=== PATIENT | male | born 1950 | race Caucasian/White ===

== ENCOUNTER 2019-11-26 20:12 | Observation (INO) | payer OTHER ==
[2019-11-26 20:21] VITALS: BMI 33.3
--- NOTE | 2019-11-26 20:27 | PDOC ---
Attending Attestation - Resident Resident Name: Roderick Shea - ED Attending Attestation I have performed the following: I have examined & evaluated the patient, The case was reviewed & discussed with the resident, I agree w/resident's findings & plan - HPI HPI: 11/26/19 23:07 see resident hpi - Physicial Exam PE: 11/26/19 23:07 see resident exam - Medical Decision Making 11/26/19 23:07 68-year-old male with approximately 15-minute episode of decreased responsiveness right facial droop witnessed by family now at baseline CT and MRI of the brain performed in the emergency department with no sign of acute infarct Call placed to neurology We will admit to medical service for further management Of note the son has been at the bedside providing history 11/26/19 23:08 Discharge - Discharge Information Problems reviewed: Yes Clinical Impression/Diagnosis: Transient ischemic attack Condition: Fair - Follow up/Referral - Patient Discharge Instructions - Post Discharge Activity
--- NOTE | 2019-11-26 21:24 | PDOC ---
History of Present Illness - General Chief Complaint: CVA/TIA Stated Complaint: POSS STROKE Time Seen by Provider: 11/26/19 20:25 - History of Present Illness Initial Comments: 11/26/19 22:00 68 yo male with pmh of dm, chf, htn, hld, dm and prior TIA presents to ED for AMS and right facial droop that started at 9 pm today. According to son patient had one episode of this in the past where pt was diagnosed with TIA at [facility]. Pt today according to pt last well known was at 7:15 pm where he took a nap and when he woke up was altered and had facial droop. This episode lasted for about twenty minutes when pt finally came back to normal mental status but still had mild facial droop. Pt currently denies headache, weakness, fevers, chills, chest pain, shortness of breath, abdominal pain, dysuria, or urinary frequency. PMH: DM, chf, htn, hld, dm, TIA. meds: finasteride. metformin, furosemide, omeprazole, losartin, lipitor, metoprolol, tamsulosin, baclofen, aspirin PSH: Right knee replacement (7 years ago) allergies: denies Social: denies smoking, drugs and alcohol Neurologist: Dr. Holcomb [phone] Past History - Medical History Allergies/Adverse Reactions: Allergies Allergy/AdvReac Type Severity Reaction Status Date / Time No Known Allergies Allergy Verified 11/26/19 20:21 - Psycho-Social/Smoking History Smoking History: Unknown if ever smoked Review of Systems - Review of Systems Comments:: 11/27/19 10:58 GENERAL/CONSTITUTIONAL: No fever or chills. No weakness. HEAD, EYES, EARS, NOSE AND THROAT: No change in vision. No ear pain or discharge. No sore throat. CARDIOVASCULAR: No chest pain or shortness of breath RESPIRATORY: No cough, wheezing, or hemoptysis. GASTROINTESTINAL: No nausea, vomiting, diarrhea or constipation. GENITOURINARY: No dysuria, frequency, or change in urination. MUSCULOSKELETAL: No joint or muscle swelling or pain. No neck or back pain. SKIN: No rash NEUROLOGIC: NO headeache. AMS and facial droop ALLERGIC/IMMUNOLOGIC: No hives or skin allergy. *Physical Exam - Vital Signs Last Vital Signs Temp Pulse Resp BP Pulse Ox 97.2 F L 88 18 106/71 99 11/26/19 20:12 11/26/19 20:12 11/26/19 20:12 11/26/19 20:12 11/26/19 20:12 - Physical Exam GENERAL: Awake, alert, and orientedx2, in no acute distress HEAD: No signs of trauma, normocephalic, atraumatic EYES: PERRLA, EOMI, sclera anicteric, conjunctiva clear ENT: Auricles normal inspection, hearing grossly normal, nares patent, oropharynx clear without exudates. Moist mucosa NECK: Normal ROM, supple, no lymphadenopathy, JVD, or masses LUNGS: No distress, speaks full sentences, clear to auscultation bilaterally HEART: Regular rate and rhythm, normal S1 and S2, no murmurs, rubs or gallops, peripheral pulses normal and equal bilaterally. ABDOMEN: Soft, nontender, normoactive bowel sounds. No guarding, no rebound. No masses EXTREMITIES : Normal inspection, Normal range of motion, no edema. No clubbing or cyanosis. NEUROLOGICAL: Cranial nerves II through XII intact with mild right sided facial droop. Normal speech, no focal sensorimotor deficits. Finger to nose intact. Heel to solares intact. 5/5 muscle strength in upper and lower ext bilaterally. SKIN: Warm, Dry, normal turgor, no rashes or lesions noted NIH Stroke Scale - Initial Evaluation Level of consciousness: Alert Ask patient the month and their age: Answers one correctly Ask patient to open & close eyes; make fist and let go: Obeys both correctly Best gaze (horizontal eye movement): Normal Visual field testing: No visual field loss Facial paresis (Show teeth/raise eyebrows/close eyes tight): Minor paralysis (flattened nasolabial fold, asymmetry on smiling) Motor Function: Left Arm: Normal Motor Function: Right Arm: Normal (extends arm 90 (or 45) degrees for 10 seconds without drift Motor Function: Left Leg: Normal (extends leg 30 degrees for 5 seconds without drift) Motor Function: Right Leg: Normal (extends leg 30 degrees for 5 seconds without drift) Limb Ataxia: No ataxia Sensory(Use pinprick test arms,legs,trunk,face/side to side): Normal Best language (Describe picture, name items, read sentences): No Aphasia Dysarthria (read several words): Normal articulation Extinction and Inattention: No abnormality - Total Score NIH Stroke Scale Score: 2 tPA Exclusion Checklist 0-3hr - Time Elapsed Date last known well: 11/26/19 Time last known well: 19:15 Elaspsed time: Day(s) and 15 Hour(s) and 39 Minutes - Thrombolytic Therapy Candidate Is the patient eligible for Thrombolytic Therapy?: No - Relative Exclusion Criteria 0-3h Care team unable to determine eligibility: Yes Stroke severity too mild (non-disabling): Yes - Ineligibility reason(s) Reasons No tPA given: See reason(s) noted above (stroke severity too mild ) tPA Exclusion checklist 3-4.5h - Time Elapsed Date last known well: 11/26/19 Time last known well: 19:15 Elaspsed time: Day(s) and 15 Hour(s) and 39 Minutes - Relative Exclusion Criteria 3-4.5 hr Stroke severity too mild (non-disabling): Yes Critical Care Time/MDM Note - Medical Decision Making Note: 11/26/19 23:13 68 yo male with pmh as above presents to ED for AMS and right facial droop. Pt received CT scan and MRI of brain which showed chronic stroke According to son pt back to baseline. AAOx2 and facial droop better. Pt HPI and ED course was discussed with Dr. Narayanan. Dr. Narayanan recommended admission for observation. Pt was signed out to PM team. Discharge - Discharge Information Problems reviewed: Yes Clinical Impression/Diagnosis: Transient ischemic attack Condition: Fair - Follow up/Referral - Patient Discharge Instructions - Post Discharge Activity
[2019-11-26 22:14] LABS: BASO % 1.5 % (0-2.0); EOS % 0.5 % (0-4.5); HEMATOCRIT 30.7 % (35.4-49); HEMOGLOBIN 10.4 GM/dL (11.7-16.9); LYMPH % 20.2 % (8-40); MCH 28.4 pg (25.7-33.7); MEAN CELL VOLUME 83.4 fl (80-96); MEAN PLT VOLUME 7.7 fl (7.5-11.1); MONO % 4.2 % (3.8-10.2); NEUT % 73.6 % (42.8-82.8); PLATELET COUNT 298 K/MM3 (134-434); RBC 3.68 M/mm3 (4.00-5.60); RDW 14.8 % (11.9-15.9); WHITE BLOOD COUNT 9.2 K/mm3 (4.0-10.0)
[2019-11-26 22:25] LABS: INR 0.99 (0.83-1.09); PROTHROMBIN TIME (PATIENT) 12.2 SEC (9.7-13.0)
[2019-11-26 22:28] LABS: ACTIVATED PTT 23.1 SECONDS (25.2-36.5)
[2019-11-26 22:37] LABS: ALBUMIN 2.4 g/dl (3.4-5.0); ALK PHOS 58 U/L (45-117); ANION GAP 7 MMOL/L (8-16); BILIRUBIN,TOTAL 0.1 mg/dL (0.2-1); BLOOD UREA NITROGEN 18.3 mg/dL (7-18); CALCIUM 8.5 mg/dL (8.5-10.1); CHLORIDE 97 mmol/L (98-107); CHOLESTEROL 87 mg/dL (50-200); CO2 30 mmol/L (21-32); CREATININE 0.9 mg/dL (0.55-1.3); GLUCOSE,RANDOM 140 mg/dL (74-106); HDL CHOLESTEROL 51 mg/dL (40-60); LDL CHOLESTEROL (ONLY SJRH) 25 mg/dL (5-100); POTASSIUM 4.4 mmol/L (3.5-5.1); SGOT/AST 13 U/L (15-37); SGPT/ALT 9 U/L (13-61); SODIUM 134 mmol/L (136-145); TOT PROT 7.2 g/dl (6.4-8.2); TRIGLYCERIDES 88 mg/dL (0-150)
[2019-11-26] MEDS ORDERED: ASPIRIN COATED 81 MG TABLET.EC PO ONE (23:05)
[2019-11-26] MEDS ORDERED: ASPIRIN COATED 81 MG TABLET.EC ONE (23:05)
--- NOTE | 2019-11-26 23:20 | PDOC ---
*Physical Exam - Vital Signs Last Vital Signs Temp Pulse Resp BP Pulse Ox 97.2 F L 88 18 106/71 99 11/26/19 20:12 11/26/19 20:12 11/26/19 20:12 11/26/19 20:12 11/26/19 20:12 ED Treatment Course - LABORATORY CBC & Chemistry Diagram: 11/26/19 21:45 11/26/19 21:45 - ADDITIONAL ORDERS Additional order review: Laboratory Results 11/26/19 11/26/19 11/26/19 21:48 21:45 21:45 PT with INR 12.20 INR 0.99 PTT (Actin FS) 23.1 L Sodium 134 L Potassium 4.4 Chloride 97 L Carbon Dioxide 30 Anion Gap 7 L BUN 18.3 H Creatinine 0.9 Est GFR (CKD-EPI)AfAm 99.94 Est GFR (CKD-EPI)NonAf 86.23 Random Glucose 140 H Calcium 8.5 Total Bilirubin 0.1 L AST 13 L ALT 9 L Alkaline Phosphatase 58 Creatine Kinase 36 Troponin I < 0.02 Total Protein 7.2 Albumin 2.4 L Triglycerides 88 Cholesterol 87 Total LDL Cholesterol 25 HDL Cholesterol 51 Antibody Screen Negative 11/26/19 21:45 RBC 3.68 L MCV 83.4 MCHC 34.0 RDW 14.8 MPV 7.7 Neutrophils % 73.6 Lymphocytes % 20.2 Monocytes % 4.2 Eosinophils % 0.5 Basophils % 1.5 Medical Decision Making - Medical Decision Making 11/26/19 23:13 68 yo male with pmh as above presents to ED for AMS and right facial droop. Pt received CT scan and MRI of brain which showed chronic stroke According to son pt back to baseline. AAOx2 and facial droop better. 11/26/19 23:17 Signed out from night team. Dr. Le consulted, suggested tele/obs admit. 11/27/19 01:58 Will have pt admitted for further work up. Discharge - Discharge Information Problems reviewed: Yes Clinical Impression/Diagnosis: Transient ischemic attack Condition: Fair - Admission Yes - Follow up/Referral - Patient Discharge Instructions - Post Discharge Activity
--- NOTE | 2019-11-27 01:57 | HP ---
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 The patient is a poor historian and was accompanied by his son and collateral information of the event was obtained by the ED team. The son of the patient endorsed the patients facial droop and mild confusion shortly after awaking from a nap for ~20 min in duration. During ED visit patient had returned to baseline with risidual L sided focal neurological deficits. Pt currently denies headache, weakness, fevers, chills, chest pain, shortness of breath, abdominal pain, dysuria, or urinary frequency. ER course was notable for: (1) return to baseline (2) (3) Recent Travel: Denied PAST MEDICAL HISTORY: as above PAST SURGICAL HISTORY: as above Social History: Smoking: Denied Alcohol: denied Drugs: denied Allergies No Known Allergies Allergy (Verified 11/26/19 20:21) HOME MEDICATIONS: REVIEW OF SYSTEMS See above PHYSICAL EXAMINATION Vital Signs - 24 hr 11/26/19 11/27/19 20:12 00:23 Temperature 97.2 F L Pulse Rate 88 Pulse Rate [ 92 H Apical] Respiratory 18 18 Rate Blood Pressure 106/71 Blood Pressure 100/61 [Left Arm] O2 Sat by Pulse 99 100 Oximetry (%) GENERAL: Awake, alert, and fully oriented, in no acute distress. HEAD: Normal with no signs of trauma. LUNGS: Breath sounds equal, clear to auscultation bilaterally. No wheezes, and no crackles. No accessory muscle use. HEART: Regular rate and rhythm, normal S1 and S2 without murmur, rub or gallop. ABDOMEN: Soft, nontender, not distended, normoactive bowel sounds, no guarding, no rebound, no masses. No hepatomegaly or splenomegaly. LOWER EXTREMITIES: 2+ pulses, warm, well-perfused. No calf tenderness. No periph eral edema. NEUROLOGICAL: Cranial nerves II-XII intact. Residual Left facial weakness w pursed lips (CN 7), Residual L upper and lower extremity weakness Laboratory Results - last 24 hr 11/26/19 11/26/19 11/26/19 21:45 21:45 21:45 WBC 9.2 RBC 3.68 L Hgb 10.4 L Hct 30.7 L MCV 83.4 MCH 28.4 MCHC 34.0 RDW 14.8 Plt Count 298 MPV 7.7 Absolute Neuts (auto) 6.7 Neutrophils % 73.6 Lymphocytes % 20.2 Monocytes % 4.2 Eosinophils % 0.5 Basophils % 1.5 Nucleated RBC % 0 PT with INR 12.20 INR 0.99 PTT (Actin FS) 23.1 L Sodium 134 L Potassium 4.4 Chloride 97 L Carbon Dioxide 30 Anion Gap 7 L BUN 18.3 H Creatinine 0.9 Est GFR (CKD-EPI)AfAm 99.94 Est GFR (CKD-EPI)NonAf 86.23 Random Glucose 140 H Calcium 8.5 Total Bilirubin 0.1 L AST 13 L ALT 9 L Alkaline Phosphatase 58 Creatine Kinase 36 Troponin I < 0.02 Total Protein 7.2 Albumin 2.4 L Triglycerides 88 Cholesterol 87 Total LDL Cholesterol 25 HDL Cholesterol 51 Blood Type Antibody Screen 11/26/19 21:48 WBC RBC Hgb Hct MCV MCH MCHC RDW Plt Count MPV Absolute Neuts (auto) Neutrophils % Lymphocytes % Monocytes % Eosinophils % Basophils % Nucleated RBC % PT with INR INR PTT (Actin FS) Sodium Potassium Chloride Carbon Dioxide Anion Gap BUN Creatinine Est GFR (CKD-EPI)AfAm Est GFR (CKD-EPI)NonAf Random Glucose Calcium Total Bilirubin AST ALT Alkaline Phosphatase Creatine Kinase Troponin I Total Protein Albumin Triglycerides Cholesterol Total LDL Cholesterol HDL Cholesterol Blood Type O POSITIVE Antibody Screen Negative ASSESSMENT/PLAN: 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 #TIA - patient has returned to baseline according to son - admit to tele - brain MRI/CT no acute intracranial pathology - Carotid dopplar - chronic infarct of the sorto radiata - asa 325 daily - neurochecks daily - Consult neuro - Dr. Le -fall/aspiration/seizure precautions #Anemia - iron panel - ferritin - stool guiac #HYPONATREMIA - IV NS - monitor lytes #DM -ISS -BGM #HTN -monitor BP #HLD #FEN -diabetic diet #DISPO -tele #DVT ppx - lovenox sq #Advanced directive -Full code Family Medical History Family History: As Documented Visit type - Medication Review Med list reviewed for High Risk Meds patients 65 and older: Yes - Emergency Visit Emergency Visit: Yes ED Registration Date: 11/27/19 Care time: The patient presented to the Emergency Department on the above date and was hospitalized for further evaluation of their emergent condition. - New Patient This patient is new to me today: Yes Date on this admission: 11/27/19 - Critical Care Critical Care patient: No ATTENDING PHYSICIAN STATEMENT I saw and evaluated the patient. I reviewed the resident's note and discussed the case with the resident. I agree with the resident's findings and plan as documented. SUBJECTIVE: OBJECTIVE: ASSESSMENT AND PLAN:
--- NOTE | 2019-11-27 02:40 | PN ---
Teaching Attending Note Name of Resident: Michele Ragsdale ATTENDING PHYSICIAN STATEMENT I saw and evaluated the patient. I reviewed the resident's note and discussed the case with the resident. I agree with the resident's findings and plan as documented. SUBJECTIVE: Patient is a 68 year old man with a PMH of NIDDM, CHF, HTN, HLD and TIA a 15 minute episode of decreased responsiveness and right facial droop that started at 9 pm today. According to son patient had one episode of this in the past and was diagnosed with TIA at [facility]. According to patient he was last known well at 7:15 pm when he took a nap and then woke up altered and had a right facial droop. This episode lasted for about 15 minutes then he came back to normal mental status but still had mild facial droop. Patient denies chest pain, shortness of breath, abdominal pain, headache, palpitations, dizziness, fever, chills, nausea, vomiting, diarrhea, constipation, dysuria, frequency, urgency, melena, hematochezia or hematuria. Patient improved while in the ER and according to son, his responsiveness is back to his baseline. Denies alcohol, tobacco or illicit drug use. No sick contacts or recent travels. Family history is unremarkable. OBJECTIVE: Alert Vital Signs Period Temp Pulse Resp BP Sys/Uribe Pulse Ox Last 24 Hr 97.2 F 88-92 18-18 100-106/61-71 99-100 HEENT: No Jaundice, eye redness or discharge, PERRLA, EOMI. Left facial droop; Normocephalic, atraumatic. External ears are normal and hearing is grossly intact. No nasal discharge. Neck: Supple, nontender. No palpable adenopathy or thyromegaly. No JVD Chest: Good effort. Clear to auscultation and percussion. Heart: Regular. No S3, rub or murmur Abdomen: Not distended, soft, nontender and no HSM. No rebound or guarding. Normal bowel sounds. Ext: Peripheral pulses intact. No leg edema. Skin: Warm and dry. No petechiae, rash or ecchymosis. Neuro: Alert. Oriented x3. CN 2-12 grossly intact. Sensation grossly intact in all four extremities; left side weakness. Psych: Appropriate mood and affect. Good insight. Abnormal Lab Results 10/11/26/19 11/26/19 21:45 21:45 21:45 RBC 3.68 L Hgb 10.4 L Hct 30.7 L PTT (Actin FS) 23.1 L Sodium 134 L Chloride 97 L Anion Gap 7 L BUN 18.3 H Random Glucose 140 H Total Bilirubin 0.1 L AST 13 L ALT 9 L Albumin 2.4 L Current Medications Generic Name Dose Route Start Last Admin Trade Name Columba PRN Reason Stop Dose Admin Aspirin 243 mg 11/27/19 23:04 11/26/19 23:26 Ecotrin - PO 11/27/19 23:05 243 mg NOW ONE Administration Aspirin 81 mg 11/27/19 10:00 Asa - PO DAILY SHU Enoxaparin Sodium 40 mg 11/27/19 10:00 Lovenox - SQ DAILY SHU ASSESSMENT AND PLAN: 1. Rule out CVA - NIHSS score was 2 in the ER. tPA not given. No evidence of acute intracranial pathology on noncontrast head CT scan, but a left frontal sorto radiata infarct was confirmed by MRI to be chronic. Needs repeat MRI in 24 hours. No acute abnormality on CXR. EKG shows NSR at 88/minute and QTc 488 with no significant acute ischemic ST-T wave changes. No old EKG available for comparison. Initial troponin is negative. Will avoid drugs that may prolong QTc. Got Aspirin 243 mg in the ER. Will admit to telemetry, get urinalysis, repeat troponin & EKG, get ECHO, TSH, carotid doppler, do speech and swallow evaluation, give high dose statin &Aspirin, do neurochecks and implement fall/aspiration/seizure precautions. Consult PT/Neurology. Hyponatremia likely partly due to hyperglycemia. Will limit free water intake and correct hyperglycemia. Viral testing for COVID-19 ordered and patient placed on airborne, droplet and contact isolation. Will continue comprehensive care for all of patients comorbid conditions. 2. DM Will implement sliding scale insulin regimen. Provide comprehensive diabetes care with patient teaching and counseling about the importance of adherence to prescribed diabetes regimen, euglycemia, eye care and foot care. 3. Anemia Cause unclear. Will do basic anemia work up including serial stool guaiacs, reticulocyte count and iron studies. Consult GI. 4. Obesity Counseled on the risks associated with obesity. Will provide patient all the necessary assistance, counseling and positive reinforcement to facilitate weight loss. Consult gasket winder. 5. Hypertension Will allow permissive hypertension for 24 to 48 hours. Will restart suitable outpatient antihypertensive drugs when clinically appropriate. Subsequently, will revise regimen to ensure [id number]-eyayy excellent BP control. Patient counseled on the injurious effects of uncontrolled hypertension. Nonpharmacologic measures to control hypertension like weight loss, salt restriction and exercise stressed. Importance of adherence to treatment regimen and attainment of normotension emphasized. 6. Hypoalbuminemia - Possibly due to combined effects of malnutrition and inflammation associated with comorbid conditions. Will ensure adequate dietary protein intake and also consult gasket winder. Urinalysis pending. 7. DVT prophylaxis - Lovenox 40 mg SQ q 24 hours. 8. Advance directives - Full code
[2019-11-27] MEDS ORDERED: ASPIRIN 81 MG CHEWABLE TABLETS ONE ×2 (05:09→10:49)
[2019-11-27 06:34] LABS: ALBUMIN 2.3 g/dl (3.4-5.0); BILIRUBIN,TOTAL 0.3 mg/dL (0.2-1); BLOOD UREA NITROGEN 14.4 mg/dL (7-18); CALCIUM 7.9 mg/dL (8.5-10.1); CREATININE 0.7 mg/dL (0.55-1.3); MAGNESIUM 1.9 mg/dL (1.8-2.4); PHOSPHOROUS 3.9 mg/dL (2.5-4.9); POTASSIUM 3.7 mmol/L (3.5-5.1); TOT PROT 6.7 g/dl (6.4-8.2)
[2019-11-27 07:28] LABS: BASO % 0.5 % (0-2.0); EOS % 0.4 % (0-4.5); HEMATOCRIT 28.8 % (35.4-49); HEMOGLOBIN 9.8 GM/dL (11.7-16.9); LYMPH % 25.3 % (8-40); MCH 27.8 pg (25.7-33.7); MEAN CELL VOLUME 81.7 fl (80-96); MEAN PLT VOLUME 7.3 fl (7.5-11.1); MONO % 4.3 % (3.8-10.2); NEUT % 69.5 % (42.8-82.8); PLATELET COUNT 317 K/MM3 (134-434); RBC 3.53 M/mm3 (4.00-5.60); RDW 14.8 % (11.9-15.9); WHITE BLOOD COUNT 6.4 K/mm3 (4.0-10.0)
[2019-11-27] MEDS ORDERED: ASPIRIN COATED 81 MG TABLET.EC PO SCH (10:00)
[2019-11-27] MEDS ORDERED: ENOXAPARIN NA (PORCINE) 40 MG/0.4 ML DISP.SYRIN SQ ONE (10:50)
[2019-11-27] MEDS: ENOXAPARIN NA (PORCINE) 40 MG/0.4 ML DISP.SYRIN SQ SCH (10:54)
[2019-11-27] MEDS: ASPIRIN 81 MG CHEWABLE TABLETS PO SCH (10:54)
[2019-11-27] MEDS ORDERED: OMEPRAZOLE PO SCH (12:00)
[2019-11-27] MEDS ORDERED: PATIENT'S OWN MEDICATION (NON-FORMULARY) (Linaclotide [Linzess] 290 MCG) PO SCH (12:00)
[2019-11-27] MEDS ORDERED: PATIENT'S OWN MEDICATION (NON-FORMULARY) (Lisinopril [Zestril] 2.5 MG) PO SCH (13:15)
--- NOTE | 2019-11-27 13:35 | EKG ---
Test Reason : Blood Pressure : / mmHG Vent. Rate : 088 BPM Atrial Rate : 088 BPM P-R Int : 136 ms QRS Dur : 076 ms QT Int : 404 ms P-R-T Axes : 036 014 025 degrees QTc Int : 488 ms NORMAL SINUS RHYTHM LOW VOLTAGE QRS CANNOT RULE OUT ANTERIOR INFARCT , AGE UNDETERMINED ABNORMAL ECG NO PREVIOUS ECGS AVAILABLE Confirmed by KIMBERLI MEYER MD ([id number]) on 11/27/2019 1:35:35 PM Referred By: Confirmed By:KIMBERLI MEYER MD
[2019-11-27] MEDS ORDERED: TAMSULOSIN HCL 0.4 MG CAP ONE (13:44)
[2019-11-27] MEDS ORDERED: LISINOPRIL 5 MG TABLET ONE (13:47)
[2019-11-27] MEDS ORDERED: metoPROLOL SUCCINATE 25 MG TAB.SR.24H (FP) ONE (13:47)
[2019-11-27] MEDS ORDERED: LOSARTAN POTASSIUM 50 MG TABLET ONE (13:47)
[2019-11-27] MEDS: LOSARTAN POTASSIUM 25 MG TABLET PO SCH (14:02)
[2019-11-27] MEDS: LISINOPRIL 5 MG TABLET PO SCH (14:02)
[2019-11-27] MEDS: TAMSULOSIN HCL 0.4 MG CAP PO SCH (14:02)
[2019-11-27] MEDS: metoPROLOL SUCCINATE 25 MG TAB.SR.24H (FP) PO SCH (14:02)
--- NOTE | 2019-11-27 14:07 | PN ---
Physical Exam: SUBJECTIVE: Patient seen and examined OBJECTIVE: Vital Signs Period Temp Pulse Resp BP Sys/Uribe Pulse Ox Last 24 Hr 97.2 F-97.8 F 80-92 18-19 95-106/61-71 99-100 GENERAL: The patient is awake, alert, and fully oriented, in no acute distress. HEAD: Normal with no signs of trauma. EYES: PERRL, extraocular movements intact, sclera anicteric, conjunctiva clear. No ptosis. ENT: Ears normal, nares patent, oropharynx clear without exudates, moist mucous membranes. NECK: Trachea midline, full range of motion, supple. LUNGS: Breath sounds equal, clear to auscultation bilaterally, no wheezes, no crackles, no accessory muscle use. HEART: Regular rate and rhythm, S1, S2 without murmur, rub or gallop. ABDOMEN: Soft, nontender, nondistended, normoactive bowel sounds, no guarding, no rebound, no hepatosplenomegaly, no masses. EXTREMITIES: 2+ pulses, warm, well-perfused, no edema. NEUROLOGICAL: Cranial nerves II through XII grossly intact. Normal speech, gait not observed. PSYCH: Normal mood, normal affect. SKIN: Warm, dry, normal turgor, no rashes or lesions noted Laboratory Results - last 24 hr 11/26/19 11/26/19 11/26/19 21:45 21:45 21:45 WBC 9.2 RBC 3.68 L Hgb 10.4 L Hct 30.7 L MCV 83.4 MCH 28.4 MCHC 34.0 RDW 14.8 Plt Count 298 MPV 7.7 Absolute Neuts (auto) 6.7 Neutrophils % 73.6 Lymphocytes % 20.2 Monocytes % 4.2 Eosinophils % 0.5 Basophils % 1.5 Nucleated RBC % 0 PT with INR 12.20 INR 0.99 PTT (Actin FS) 23.1 L Sodium 134 L Potassium 4.4 Chloride 97 L Carbon Dioxide 30 Anion Gap 7 L BUN 18.3 H Creatinine 0.9 Est GFR (CKD-EPI)AfAm 99.94 Est GFR (CKD-EPI)NonAf 86.23 POC Glucometer Random Glucose 140 H Calcium 8.5 Phosphorus Magnesium Iron TIBC Iron Saturation Unsaturated IBC Ferritin Total Bilirubin 0.1 L AST 13 L ALT 9 L Alkaline Phosphatase 58 Creatine Kinase 36 Troponin I < 0.02 Total Protein 7.2 Albumin 2.4 L Triglycerides 88 Cholesterol 87 Total LDL Cholesterol 25 HDL Cholesterol 51 TSH Blood Type Antibody Screen 11/26/19 11/27/19 11/27/19 21:48 05:30 06:22 WBC 6.4 RBC 3.53 L Hgb 9.8 L Hct 28.8 L MCV 81.7 MCH 27.8 MCHC 34.0 RDW 14.8 Plt Count 317 MPV 7.3 L Absolute Neuts (auto) 4.5 Neutrophils % 69.5 Lymphocytes % 25.3 D Monocytes % 4.3 Eosinophils % 0.4 Basophils % 0.5 Nucleated RBC % 0 PT with INR INR PTT (Actin FS) Sodium 135 L Potassium 3.7 Chloride 100 Carbon Dioxide 28 Anion Gap 7 L BUN 14.4 Creatinine 0.7 Est GFR (CKD-EPI)AfAm 110.82 Est GFR (CKD-EPI)NonAf 95.61 POC Glucometer Random Glucose 126 H Calcium 7.9 L Phosphorus 3.9 Magnesium 1.9 Iron 34 L TIBC 166 L Iron Saturation 20 Unsaturated IBC 132 L Ferritin 266.1 Total Bilirubin 0.3 AST 7 L ALT 9 L Alkaline Phosphatase 54 Creatine Kinase Troponin I Total Protein 6.7 Albumin 2.3 L Triglycerides Cholesterol Total LDL Cholesterol HDL Cholesterol TSH 0.81 Blood Type O POSITIVE Antibody Screen Negative 11/27/19 11:31 WBC RBC Hgb Hct MCV MCH MCHC RDW Plt Count MPV Absolute Neuts (auto) Neutrophils % Lymphocytes % Monocytes % Eosinophils % Basophils % Nucleated RBC % PT with INR INR PTT (Actin FS) Sodium Potassium Chloride Carbon Dioxide Anion Gap BUN Creatinine Est GFR (CKD-EPI)AfAm Est GFR (CKD-EPI)NonAf POC Glucometer 99 Random Glucose Calcium Phosphorus Magnesium Iron TIBC Iron Saturation Unsaturated IBC Ferritin Total Bilirubin AST ALT Alkaline Phosphatase Creatine Kinase Troponin I Total Protein Albumin Triglycerides Cholesterol Total LDL Cholesterol HDL Cholesterol TSH Blood Type Antibody Screen Active Medications Generic Name Dose Route Start Last Admin Trade Name Freq PRN Reason Stop Dose Admin Aspirin 81 mg 11/27/19 10:00 11/27/19 10:54 Asa - PO 81 mg DAILY [facility] Administration Atorvastatin Calcium 40 mg 11/27/19 22:00 Lipitor - PO HS SHU Clopidogrel Bisulfate 75 mg 11/27/19 14:00 Plavix - PO DAILY [facility] Enoxaparin Sodium 40 mg 11/27/19 10:00 11/27/19 10:54 Lovenox - SQ 40 mg DAILY [facility] Administration Finasteride 5 mg 11/27/19 14:00 Proscar - PO DAILY [facility] Lisinopril 2.5 mg 11/27/19 13:15 Prinivil PO DAILY [facility] Losartan Potassium 25 mg 11/27/19 14:00 Cozaar - PO DAILY [facility] Metoprolol Succinate 25 mg 11/27/19 13:15 Toprol Xl - PO DAILY [facility] Non-Formulary Medication 290 mcg 11/27/19 12:00 Linaclotide [Linzess] PO DAILY [facility] Non-Formulary Medication 50 mg 11/27/19 12:00 Omeprazole [Omeprazole] PO DAILY [facility] Solifenacin 10 mg 11/27/19 14:00 Vesicare - PO DAILY [facility] Tamsulosin HCl 0.4 mg 11/27/19 13:15 Flomax - PO DAILY@0830 [facility] ASSESSMENT/PLAN: 68 y/o M with PMS of TIA, DM, CHF, HTN, and HLD presenting with increased confusion and right sided facial droop. Admitted for a TIA. #TIA ATTENDING PHYSICIAN STATEMENT I saw and evaluated the patient. I reviewed the resident's note and discussed the case with the resident. I agree with the resident's findings and plan as documented. SUBJECTIVE: OBJECTIVE: ASSESSMENT AND PLAN:
[2019-11-27] MEDS ORDERED: CLOPIDOGREL BISULFATE 75 MG TABLET (FP) ONE (18:06)
[2019-11-27] MEDS: SOLIFENACIN SUCCINATE 5 MG TAB PO SCH (18:08)
[2019-11-27] MEDS: FINASTERIDE 5 MG TABLET (FP) PO SCH (18:08)
[2019-11-27] MEDS: CLOPIDOGREL BISULFATE 75 MG TABLET (FP) PO SCH (18:09)
--- NOTE | 2019-11-27 19:12 | CON.NEURO ---
Consult Consult Specialty:: Alexandro Referred by:: ER Reason for Consultation:: CVA - History of Present Illness History of Present Illness: 68 year sold man with PMH CAd O A TIA in the past, dm, chf, htn, hld, came in with facial droop I spoke to the ER that the patient still with diffciulty confsued patient had the CT and MRI Patient seen in [facility] ER No acute CVA on [facility] MRI - History Source History Provided By: Medical Record Limitations to Obtaining History: Clinical Condition - Smoking History Smoking history: Unknown if ever smoked Home Medications - Allergies Allergies/Adverse Reactions: Allergies Allergy/AdvReac Type Severity Reaction Status Date / Time No Known Allergies Allergy Verified 11/26/19 20:21 - Home Medications Home Medications: Ambulatory Orders Atorvastatin Ca [Lipitor] 40 mg PO HS 11/27/19 Finasteride [Proscar -] 5 mg PO DAILY 11/27/19 Glipizide [Glipizide ER] 5 mg PO BID 11/27/19 Linaclotide [Linzess] 290 mcg PO DAILY 11/27/19 Lisinopril [Zestril] 2.5 mg PO DAILY 11/27/19 Losartan Potassium 25 mg PO DAILY 11/27/19 Metoprolol Succinate 25 mg PO DAILY 11/27/19 Omeprazole 50 mg PO DAILY 11/27/19 Oxybutynin Chloride [Oxybutynin Chloride ER] 15 mg PO DAILY 11/27/19 Tamsulosin HCl 0.4 mg PO DAILY 11/27/19 metFORMIN HCL [Metformin HCl] 850 mg PO DAILY 11/27/19 Family Medical History Family History: Unable to Obtain Review of Systems - Review of Systems Neurological: reports: Headache, Incoordination, Numbness Physical Exam-Neuro Vital Signs: Vital Signs Temperature 98.9 F 11/27/19 17:12 Pulse Rate 80 11/27/19 10:40 Respiratory Rate 19 11/27/19 10:40 Blood Pressure 102/65 11/27/19 16:55 O2 Sat by Pulse Oximetry (%) 99 11/27/19 16:55 Constitutional: Yes: Well Nourished Neck: Yes: WNL Cardiovascular: Yes: WNL Labs: CBC, BMP 11/27/19 06:22 11/27/19 05:30 INR, PTT INR 0.99 (0.83-1.09) 11/26/19 21:45 - Neuro Exam Level Of Consciousness: Yes: Oriented to Person, Oriented to Place, Oriented to Time Eyes: Yes: PERRLA Dominant Hand: Right Cranial Nerves II-XII Intact: Yes Gag: Present DTR's: 0 Left Brachioradialis, 0 Right Brachioradialis, 0 Left Achilles, 0 Right Achilles, 1+ Left Bicep, 1+ Right Bicep Response to light touch: Abnormal Response to pain prick: Abnormal Response to temperature: Abnormal Response to vibration: Abnormal Motor Strength: 4/5: Left Arm, Right Arm, Left Leg, Right Leg Imaging - Results Cat Scan: Image Reviewed MRI: Image Reviewed Problem List - Problems (1) CVA (cerebral vascular accident) Code(s): I63.9 - CEREBRAL INFARCTION, UNSPECIFIED (2) Transient ischemic attack Code(s): G45.9 - TRANSIENT CEREBRAL ISCHEMIC ATTACK, UNSPECIFIED Assessment/Plan 1. fall precautions 2. ASpirin 3. PT 4. Hoocysteine level 5. HA1c and C peptide Thank you Norman Mc MD [id number]
[2019-11-27] MEDS ORDERED: ATORVASTATIN CA 40 MG TABLET (FP) PO SCH (22:00)
[2019-11-27] MEDS ORDERED: ATORVASTATIN CA 40 MG TABLET (FP) ONE (22:10)
[2019-11-27] MEDS ORDERED: ASPIRIN COATED 81 MG TABLET.EC PO ONE (23:04)
[2019-11-28 01:50] LABS: PH,URINE 5.5 (5.0-8.0); URINE APPEARANCE CLEAR; URINE BILIRUBIN NEGATIVE (NEGATIVE); URINE COLOR YELLOW; URINE GLUCOSE (UA) NEGATIVE (NEGATIVE); URINE KETONE NEGATIVE (NEGATIVE); URINE LEUK ESTERASE NEGATIVE (NEGATIVE); URINE NITRITE NEGATIVE (NEGATIVE); URINE PROTEIN TRACE (NEGATIVE); URINE UROBILINOGEN 0.2 mg/dL (0.2-1.0)
[2019-11-28] MEDS: TAMSULOSIN HCL 0.4 MG CAP PO SCH (08:17)
[2019-11-28 10:01] VITALS: TEMP 97.8
[2019-11-28] MEDS: ENOXAPARIN NA (PORCINE) 40 MG/0.4 ML DISP.SYRIN SQ SCH (10:01)
[2019-11-28] MEDS: ASPIRIN 81 MG CHEWABLE TABLETS PO SCH (10:01)
[2019-11-28] MEDS: FINASTERIDE 5 MG TABLET (FP) PO SCH (10:01)
[2019-11-28] MEDS: LOSARTAN POTASSIUM 25 MG TABLET PO SCH (10:01)
[2019-11-28] MEDS: LISINOPRIL 5 MG TABLET PO SCH (10:02)
[2019-11-28] MEDS: CLOPIDOGREL BISULFATE 75 MG TABLET (FP) PO SCH (10:03)
[2019-11-28] MEDS: metoPROLOL SUCCINATE 25 MG TAB.SR.24H (FP) PO SCH (10:03)
[2019-11-28] MEDS: SOLIFENACIN SUCCINATE 5 MG TAB PO SCH (10:03)
--- NOTE | 2019-11-28 11:28 | PN ---
Progress Note, Physician - Current Medication List Current Medications: Active Medications Aspirin (Asa -) 81 mg PO DAILY [facility] Last Admin: 11/28/19 10:01 Dose: 81 mg Documented by: Atorvastatin Calcium (Lipitor -) 40 mg PO HS [facility] Last Admin: 11/27/19 22:25 Dose: 40 mg Documented by: Clopidogrel Bisulfate (Plavix -) 75 mg PO DAILY [facility] Last Admin: 11/28/19 10:03 Dose: 75 mg Documented by: Enoxaparin Sodium (Lovenox -) 40 mg SQ DAILY [facility] Last Admin: 11/28/19 10:01 Dose: 40 mg Documented by: Finasteride (Proscar -) 5 mg PO DAILY [facility] Last Admin: 11/28/19 10:01 Dose: 5 mg Documented by: Lisinopril (Prinivil) 2.5 mg PO DAILY [facility] Last Admin: 11/28/19 10:02 Dose: 2.5 mg Documented by: Losartan Potassium (Cozaar -) 25 mg PO DAILY [facility] Last Admin: 11/28/19 10:01 Dose: 25 mg Documented by: Metoprolol Succinate (Toprol Xl -) 25 mg PO DAILY [facility] Last Admin: 11/28/19 10:03 Dose: 25 mg Documented by: Non-Formulary Medication (Linaclotide [Linzess]) 290 mcg PO DAILY [facility] Non-Formulary Medication (Omeprazole [Omeprazole]) 50 mg PO DAILY [facility] Solifenacin (Vesicare -) 10 mg PO DAILY [facility] Last Admin: 11/28/19 10:03 Dose: 10 mg Documented by: Tamsulosin HCl (Flomax -) 0.4 mg PO DAILY@0830 [facility] Last Admin: 11/28/19 08:17 Dose: 0.4 mg Documented by: - Objective Vital Signs: Vital Signs Temperature 97.8 F 11/28/19 09:59 Pulse Rate 81 11/28/19 09:59 Respiratory Rate 18 11/28/19 09:59 Blood Pressure 111/65 11/28/19 09:59 O2 Sat by Pulse Oximetry (%) 99 11/28/19 09:59 Labs: CBC, BMP 11/27/19 06:22 11/27/19 05:30 INR, PTT INR 0.99 (0.83-1.09) 11/26/19 21:45
--- NOTE | 2019-11-28 11:43 | DS ---
Physical Examination Vital Signs: Vital Signs Temperature 97.8 F 11/28/19 09:59 Pulse Rate 81 11/28/19 09:59 Respiratory Rate 18 11/28/19 09:59 Blood Pressure 111/65 11/28/19 09:59 O2 Sat by Pulse Oximetry (%) 99 11/28/19 09:59 Findings/Remarks: pt seen/ examined. chart reviewed awake/ comfortable. did well with pt All f/u noted Constitutional: Yes: No Distress, Calm Neck: Yes: Supple Cardiovascular: Yes: Regular Rate and Rhythm Respiratory: Yes: CTA Bilaterally Gastrointestinal: Yes: Soft Edema: No Neurological: Yes: Alert Labs: CBC, BMP 11/27/19 06:22 11/27/19 05:30 Discharge Summary Problems reviewed: Yes Reason For Visit: TRANSIENT ISCHEMIC ATTACK Current Active Problems CVA (cerebral vascular accident) (Acute) Transient ischemic attack (Acute) Hospital Course: admitted for TIA/ Concern of cva mri - no acute infarct. work up ok stable d/c home to family meds reviewed/ reconcilled d/w rn also as well as PT. Pt to follow with his pmd with in week Condition: Stable - Instructions Disposition: HOME - Home Medications Comprehensive Discharge Medication List: Ambulatory Orders Atorvastatin Ca [Lipitor] 40 mg PO HS 11/27/19 Finasteride [Proscar -] 5 mg PO DAILY 11/27/19 Glipizide [Glipizide ER] 5 mg PO BID 11/27/19 Linaclotide [Linzess] 290 mcg PO DAILY 11/27/19 Lisinopril [Zestril] 2.5 mg PO DAILY 11/27/19 Metoprolol Succinate 25 mg PO DAILY 11/27/19 Omeprazole 50 mg PO DAILY 11/27/19 Oxybutynin Chloride [Oxybutynin Chloride ER] 15 mg PO DAILY 11/27/19 Tamsulosin HCl 0.4 mg PO DAILY 11/27/19 metFORMIN HCL [Metformin HCl] 850 mg PO DAILY 11/27/19 Aspirin [ASA -] 81 mg PO DAILY tab.chew 11/28/19 Clopidogrel Bisulfate [Plavix -] 75 mg PO DAILY tablet 11/28/19 Solifenacin Succinate [Vesicare -] 10 mg PO DAILY tab 11/28/19
[2019-11-28 14:29] VITALS: BP 94/47; PULSE 79
== END 2019-11-28 15:15 | disposition home or self-care (01) ==
LOC: JER 20:12 → JERBED 11-27 02:00 → INTOOBSV 11-27 02:00 → J4S 11-28 04:28
PROVIDERS: ADMIT Internal Medicine; ATTEND Internal Medicine
PROC: 3E023GC Introduction of Other Therapeutic Substance into Muscle, Percutaneous Approach (ICD-10-PCS; principal; 2019-11-27)
DX: G45.9 Transient cerebral ischemic attack, unspecified (principal); I63.9 Cerebral infarction, unspecified; I11.0 Hypertensive heart disease with heart failure; I50.9 Heart failure, unspecified; E78.5 Hyperlipidemia, unspecified; E11.9 Type 2 diabetes mellitus without complications; D64.9 Anemia, unspecified; E88.09 Other disorders of plasma-protein metabolism, not elsewhere classified; Z29.9 Encounter for prophylactic measures, unspecified
CPT/HCPCS: 36415; 70450-TC; 70551-TC; 71045-TC-FY; 80053; 80061; 81003; 82550; 82728; 82962; 83540; 83550; 83721; 83735; 84100; 84443; 84484; 85025; 85045; 85610; 85730; 86850; 86900; 86901; 87086; 93005; 93010; 93880-TC; 96372; 97116-GP; 97161-GP; 99285-25; C9803; G0378; U0003

== ENCOUNTER 2020-02-03 14:05 | Inpatient (IN) | payer OTHER ==
[2020-02-03 14:54] VITALS: BMI 25.8
[2020-02-03] MEDS ORDERED: SODIUM CHLORIDE 0.9% 500 ML INFUS.BAG IV ONE (15:08)
[2020-02-03 15:50] LABS: BASO % 0.2 % (0-2.0); HEMATOCRIT 29.4 % (35.4-49); HEMOGLOBIN 9.6 GM/dL (11.7-16.9); LYMPH % 11.5 % (8-40); MCH 26.9 pg (25.7-33.7); MCHC 32.6 g/dl (32.0-35.9); MEAN CELL VOLUME 82.6 fl (80-96); MEAN PLT VOLUME 6.9 fl (7.5-11.1); MONO % 3.2 % (3.8-10.2); NEUT % 85.1 % (42.8-82.8); PLATELET COUNT 357 K/MM3 (134-434); RBC 3.56 M/mm3 (4.00-5.60); RDW 15.6 % (11.9-15.9); WHITE BLOOD COUNT 10.9 K/mm3 (4.0-10.0)
[2020-02-03 15:52] LABS: INR 1.2 (0.83-1.09); PROTHROMBIN TIME (PATIENT) 14.5 SEC (9.7-13.0)
[2020-02-03 15:55] LABS: ACTIVATED PTT 34.8 SECONDS (25.2-36.5)
[2020-02-03 16:05] LABS: CHLORIDE 97 mmol/L (98-107); SODIUM 133 mmol/L (136-145)
[2020-02-03 16:07] LABS: CALCIUM 7.3 mg/dL (8.5-10.1)
[2020-02-03 16:08] LABS: ALBUMIN 2.1 g/dl (3.4-5.0); ANION GAP 9 MMOL/L (8-16); BLOOD UREA NITROGEN 20.3 mg/dL (7-18); CO2 28 mmol/L (21-32); GLUCOSE,RANDOM 149 mg/dL (74-106)
[2020-02-03 16:11] LABS: SGOT/AST 12 U/L (15-37); SGPT/ALT 9 U/L (13-61)
[2020-02-03 16:13] LABS: ALK PHOS 54 U/L (45-117); BILIRUBIN,TOTAL 0.3 mg/dL (0.2-1); TOT PROT 6.6 g/dl (6.4-8.2)
[2020-02-03 16:14] LABS: N-TERMINAL BNP 830.8 pg/ml (5-125)
[2020-02-03] MEDS ORDERED: ATORVASTATIN CA 80 MG TABLET (FP) PO ONE (17:35)
[2020-02-03] MEDS ORDERED: ASPIRIN 325 MG ENTERIC COATED TABLET (FP) PO ONE (17:35)
[2020-02-03] MEDS ORDERED: ASPIRIN 325 MG ENTERIC COATED TABLET (FP) ONE (18:21)
[2020-02-03] MEDS ORDERED: ATORVASTATIN CA 80 MG TABLET (FP) ONE (18:22)
[2020-02-04 05:56] LABS: PH,URINE 6.5 (5.0-8.0); URINE APPEARANCE CLEAR; URINE BILIRUBIN NEGATIVE (NEGATIVE); URINE COLOR YELLOW; URINE GLUCOSE (UA) NEGATIVE (NEGATIVE); URINE KETONE NEGATIVE (NEGATIVE); URINE LEUK ESTERASE NEGATIVE (NEGATIVE); URINE NITRITE NEGATIVE (NEGATIVE); URINE PROTEIN TRACE (NEGATIVE); URINE UROBILINOGEN 0.2 mg/dL (0.2-1.0)
[2020-02-04 07:44] LABS: INR 1.25 (0.83-1.09)
[2020-02-04 07:46] LABS: ACTIVATED PTT 33.3 SECONDS (25.2-36.5)
[2020-02-04 07:50] LABS: BASO % 0.1 % (0-2.0); HEMATOCRIT 33.1 % (35.4-49); HEMOGLOBIN 10.9 GM/dL (11.7-16.9); MCH 26.9 pg (25.7-33.7); MEAN CELL VOLUME 81.5 fl (80-96); MEAN PLT VOLUME 6.6 fl (7.5-11.1); MONO % 3.1 % (3.8-10.2); NEUT % 90.8 % (42.8-82.8); PLATELET COUNT 325 K/MM3 (134-434); RBC 4.06 M/mm3 (4.00-5.60); RDW 15.1 % (11.9-15.9); WHITE BLOOD COUNT 11.8 K/mm3 (4.0-10.0)
[2020-02-04 08:01] LABS: BLOOD UREA NITROGEN 17.3 mg/dL (7-18)
[2020-02-04 08:05] LABS: CREATININE 0.7 mg/dL (0.55-1.3)
[2020-02-04] MEDS ORDERED: ASPIRIN COATED 81 MG TABLET.EC PO SCH (10:00)
[2020-02-04] MEDS: ASPIRIN 325 MG TABLET PO SCH (11:27)
[2020-02-04] MEDS ORDERED: ASPIRIN 325 MG ENTERIC COATED TABLET (FP) ONE (11:29)
[2020-02-04] MEDS ORDERED: ATORVASTATIN CA 80 MG TABLET (FP) ONE (22:10)
[2020-02-04] MEDS: ATORVASTATIN CA 80 MG TABLET (FP) PO SCH (22:18)
[2020-02-05] MEDS ORDERED: PNEUMOC 13-VAL CONJ-DIP CRM/PF 0.5 ML DISP.SYRIN IM ONE (10:00)
[2020-02-05] MEDS ORDERED: FLU VACCINE (FLULAVAL) PF 60 MCG/0.5 ML SYRINGE 2020-2021 IM ONE (10:00)
[2020-02-05] MEDS: ASPIRIN 325 MG TABLET PO SCH (10:35)
[2020-02-05] MEDS: FINASTERIDE 5 MG TABLET (FP) PO SCH (10:35)
[2020-02-05] MEDS: metoPROLOL SUCCINATE 25 MG TAB.SR.24H (FP) PO SCH (10:35)
[2020-02-05] MEDS: TAMSULOSIN HCL 0.4 MG CAP PO SCH (10:35)
[2020-02-05] MEDS: ATORVASTATIN CA 80 MG TABLET (FP) PO SCH (21:11)
[2020-02-06] MEDS: ASPIRIN 325 MG TABLET PO SCH (09:20)
[2020-02-06] MEDS: FINASTERIDE 5 MG TABLET (FP) PO SCH (09:20)
[2020-02-06] MEDS: metoPROLOL SUCCINATE 25 MG TAB.SR.24H (FP) PO SCH (09:21)
[2020-02-06] MEDS: TAMSULOSIN HCL 0.4 MG CAP PO SCH (09:21)
[2020-02-06] MEDS: ATORVASTATIN CA 80 MG TABLET (FP) PO SCH (21:51)
[2020-02-07] MEDS: ASPIRIN 325 MG TABLET PO SCH (09:08)
[2020-02-07] MEDS: FINASTERIDE 5 MG TABLET (FP) PO SCH (09:09)
[2020-02-07] MEDS: TAMSULOSIN HCL 0.4 MG CAP PO SCH (09:09)
[2020-02-07] MEDS: metoPROLOL SUCCINATE 25 MG TAB.SR.24H (FP) PO SCH (09:09)
[2020-02-07] MEDS: ACETAMINOPHEN 325 MG TABLET (FP) PO PRN (19:00)
[2020-02-07 19:30] LABS: BASO % 0.2 % (0-2.0); HEMATOCRIT 33.1 % (35.4-49); HEMOGLOBIN 10.7 GM/dL (11.7-16.9); LYMPH % 11.7 % (8-40); MCH 26.6 pg (25.7-33.7); MCHC 32.4 g/dl (32.0-35.9); MEAN CELL VOLUME 82.2 fl (80-96); MEAN PLT VOLUME 6.7 fl (7.5-11.1); MONO % 4.3 % (3.8-10.2); NEUT % 83.8 % (42.8-82.8); PLATELET COUNT 313 K/MM3 (134-434); RBC 4.02 M/mm3 (4.00-5.60); RDW 15.4 % (11.9-15.9); WHITE BLOOD COUNT 11.4 K/mm3 (4.0-10.0)
[2020-02-07 19:48] LABS: BLOOD UREA NITROGEN 13.3 mg/dL (7-18); CALCIUM 7.7 mg/dL (8.5-10.1)
[2020-02-07 19:52] LABS: CREATININE 0.8 mg/dL (0.55-1.3)
[2020-02-07 19:53] LABS: BILIRUBIN,TOTAL 0.2 mg/dL (0.2-1)
[2020-02-07] MEDS: ATORVASTATIN CA 80 MG TABLET (FP) PO SCH (22:13)
[2020-02-07 22:59] LABS: EPI CELLS 8 /uL (0-25.1); HYALINE CASTS 1 /uL (0-3.1); PH,URINE 5.5 (5.0-8.0); URINE APPEARANCE CLEAR; URINE BACTERIA 16 /uL (0-1359); URINE BILIRUBIN NEGATIVE (NEGATIVE); URINE COLOR YELLOW; URINE GLUCOSE (UA) NEGATIVE (NEGATIVE); URINE KETONE TRACE (NEGATIVE); URINE LEUK ESTERASE NEGATIVE (NEGATIVE); URINE NITRITE NEGATIVE (NEGATIVE); URINE PROTEIN 1+ (NEGATIVE); URINE RBC 42 /uL (0-23.9); URINE UROBILINOGEN 0.2 mg/dL (0.2-1.0); URINE WBC 6 /uL (0-25.8)
[2020-02-08] MEDS ORDERED: SODIUM CHLORIDE 0.45% 1,000 ML IV SCH (01:30)
[2020-02-08] MEDS: ACETAMINOPHEN 325 MG TABLET (FP) PO PRN (05:32)
[2020-02-08] MEDS ORDERED: SODIUM CHLORIDE 0.9% 500 ML INFUS.BAG IV ONE (06:45)
[2020-02-08] MEDS: TAMSULOSIN HCL 0.4 MG CAP PO SCH (08:12)
[2020-02-08] MEDS: metoPROLOL SUCCINATE 25 MG TAB.SR.24H (FP) PO SCH (09:18)
[2020-02-08] MEDS: FINASTERIDE 5 MG TABLET (FP) PO SCH (09:19)
[2020-02-08] MEDS: ASPIRIN 325 MG TABLET PO SCH (09:19)
[2020-02-08] MEDS: D5-1/2NS+20 MEQ KCL - 20 MEQ/1,000 ML INFUS.BAG IV SCH (13:16)
[2020-02-08] MEDS: ATORVASTATIN CA 80 MG TABLET (FP) PO SCH (21:24)
[2020-02-09 06:36] LABS: BASO % 0.1 % (0-2.0); EOS % 0.5 % (0-4.5); HEMATOCRIT 27.2 % (35.4-49); HEMOGLOBIN 9.2 GM/dL (11.7-16.9); LYMPH % 11.2 % (8-40); MCH 27.4 pg (25.7-33.7); MEAN CELL VOLUME 80.7 fl (80-96); MEAN PLT VOLUME 6.8 fl (7.5-11.1); NEUT % 85.2 % (42.8-82.8); PLATELET COUNT 305 K/MM3 (134-434); RBC 3.37 M/mm3 (4.00-5.60); RDW 15.3 % (11.9-15.9); WHITE BLOOD COUNT 10.9 K/mm3 (4.0-10.0)
[2020-02-09 06:57] LABS: ALBUMIN 1.6 g/dl (3.4-5.0); BLOOD UREA NITROGEN 14.6 mg/dL (7-18); CALCIUM 7.3 mg/dL (8.5-10.1)
[2020-02-09 07:00] LABS: BILIRUBIN,TOTAL 0.4 mg/dL (0.2-1); CREATININE 0.6 mg/dL (0.55-1.3)
[2020-02-09 07:01] LABS: TOT PROT 6.4 g/dl (6.4-8.2)
[2020-02-09] MEDS: metoPROLOL SUCCINATE 25 MG TAB.SR.24H (FP) PO SCH (09:11)
[2020-02-09] MEDS: FINASTERIDE 5 MG TABLET (FP) PO SCH (09:11)
[2020-02-09] MEDS: TAMSULOSIN HCL 0.4 MG CAP PO SCH (09:11)
[2020-02-09] MEDS: ASPIRIN 325 MG TABLET PO SCH (09:12)
[2020-02-09] MEDS: D5-1/2NS+20 MEQ KCL - 20 MEQ/1,000 ML INFUS.BAG IV SCH (09:14)
[2020-02-09] MEDS ORDERED: PNEUMOC 13-VAL CONJ-DIP CRM/PF 0.5 ML DISP.SYRIN IM ONE (11:00)
[2020-02-09] MEDS ORDERED: TAMSULOSIN HCL 0.4 MG CAP PO ONE (12:02)
[2020-02-09] MEDS: ATORVASTATIN CA 80 MG TABLET (FP) PO SCH (22:25)
[2020-02-10] MEDS: TAMSULOSIN HCL 0.4 MG CAP PO SCH (08:42)
[2020-02-10] MEDS: ASPIRIN 325 MG TABLET PO SCH (09:03)
[2020-02-10] MEDS: metoPROLOL SUCCINATE 25 MG TAB.SR.24H (FP) PO SCH (09:03)
[2020-02-10] MEDS: FINASTERIDE 5 MG TABLET (FP) PO SCH (09:03)
[2020-02-10] MEDS: ACETAMINOPHEN 325 MG TABLET (FP) PO PRN (17:24)
[2020-02-10] MEDS: ATORVASTATIN CA 80 MG TABLET (FP) PO SCH (21:42)
[2020-02-11] MEDS: ASPIRIN 325 MG TABLET PO SCH (09:28)
[2020-02-11] MEDS: metoPROLOL SUCCINATE 25 MG TAB.SR.24H (FP) PO SCH (09:28)
[2020-02-11] MEDS: TAMSULOSIN HCL 0.4 MG CAP PO SCH (09:28)
[2020-02-11] MEDS: FINASTERIDE 5 MG TABLET (FP) PO SCH (09:29)
[2020-02-11] MEDS: ASPIRIN 81 MG CHEWABLE TABLETS PO SCH (14:27)
[2020-02-11] MEDS: ATORVASTATIN CA 80 MG TABLET (FP) PO SCH (21:10)
[2020-02-12] MEDS: ACETAMINOPHEN 325 MG TABLET (FP) PO PRN (04:03)
[2020-02-12 06:51] LABS: BASO % 0.5 % (0-2.0); EOS % 0.3 % (0-4.5); HEMOGLOBIN 9.6 GM/dL (11.7-16.9); LYMPH % 21.4 % (8-40); MCH 27.1 pg (25.7-33.7); MCHC 33.2 g/dl (32.0-35.9); MEAN CELL VOLUME 81.8 fl (80-96); MONO % 4.3 % (3.8-10.2); NEUT % 73.5 % (42.8-82.8); PLATELET COUNT 444 K/MM3 (134-434); RBC 3.55 M/mm3 (4.00-5.60); RDW 15.5 % (11.9-15.9); WHITE BLOOD COUNT 8.2 K/mm3 (4.0-10.0)
[2020-02-12 07:20] LABS: CALCIUM 7.4 mg/dL (8.5-10.1)
[2020-02-12 07:21] LABS: BLOOD UREA NITROGEN 11.5 mg/dL (7-18)
[2020-02-12 07:24] LABS: ALBUMIN 1.6 g/dl (3.4-5.0); CREATININE 0.6 mg/dL (0.55-1.3)
[2020-02-12 07:27] LABS: BILIRUBIN,TOTAL 0.2 mg/dL (0.2-1); TOT PROT 6.3 g/dl (6.4-8.2)
[2020-02-12] MEDS: FINASTERIDE 5 MG TABLET (FP) PO SCH (09:10)
[2020-02-12] MEDS: ASPIRIN 81 MG CHEWABLE TABLETS PO SCH (09:11)
[2020-02-12] MEDS: TAMSULOSIN HCL 0.4 MG CAP PO SCH (09:11)
[2020-02-12] MEDS: metoPROLOL SUCCINATE 25 MG TAB.SR.24H (FP) PO SCH (09:14)
[2020-02-12 11:15] LABS: ANISOCYTOSIS 1+; MACROCYTOSIS 0; OVALOCYTE 1+; PLATELET ESTIMATE NORMAL
[2020-02-12] MEDS: ATORVASTATIN CA 80 MG TABLET (FP) PO SCH (21:27)
[2020-02-13] MEDS ORDERED: PT OWN MED DRAWER 7, Y5N ONE ×2 (09:24→18:25)
[2020-02-13] MEDS: metoPROLOL SUCCINATE 25 MG TAB.SR.24H (FP) PO SCH (09:29)
[2020-02-13] MEDS: TAMSULOSIN HCL 0.4 MG CAP PO SCH (09:29)
[2020-02-13] MEDS: ASPIRIN 81 MG CHEWABLE TABLETS PO SCH (09:29)
[2020-02-13] MEDS: FINASTERIDE 5 MG TABLET (FP) PO SCH (09:30)
[2020-02-13] MEDS ORDERED: AMPICILLIN NA/SULBACTAM NA 1.5 GM VIAL ONE ×2 (14:42→20:25)
[2020-02-13] MEDS ORDERED: SODIUM CHLORIDE 100 ML IVPB ONE ×2 (14:42→20:25)
[2020-02-13] MEDS: AMPICILLIN NA/SULBACTAM NA 1.5 GM in SODIUM CHLORIDE 100 ML IVPB SCH ×2 (15:13→21:20)
[2020-02-13] MEDS: ATORVASTATIN CA 80 MG TABLET (FP) PO SCH (21:20)
[2020-02-14] MEDS ORDERED: AMPICILLIN NA/SULBACTAM NA 1.5 GM VIAL ONE ×4 (02:25→20:25)
[2020-02-14] MEDS ORDERED: SODIUM CHLORIDE 100 ML IVPB ONE ×4 (02:25→20:25)
[2020-02-14] MEDS: AMPICILLIN NA/SULBACTAM NA 1.5 GM in SODIUM CHLORIDE 100 ML IVPB SCH ×4 (02:47→20:28)
[2020-02-14] MEDS: ACETAMINOPHEN 325 MG TABLET (FP) PO PRN (05:39)
[2020-02-14] MEDS: TAMSULOSIN HCL 0.4 MG CAP PO SCH (09:00)
[2020-02-14] MEDS ORDERED: PT OWN MED DRAWER 7, Y5N ONE (10:00)
[2020-02-14] MEDS: ASPIRIN 81 MG CHEWABLE TABLETS PO SCH (10:05)
[2020-02-14] MEDS: FINASTERIDE 5 MG TABLET (FP) PO SCH (10:05)
[2020-02-14] MEDS: metoPROLOL SUCCINATE 25 MG TAB.SR.24H (FP) PO SCH (10:07)
[2020-02-14] MEDS: DEXTROSE 5%-NORMAL SALINE 1,000 ML IV SCH (20:28)
[2020-02-14] MEDS: ATORVASTATIN CA 80 MG TABLET (FP) PO SCH (22:03)
[2020-02-14 22:09] LABS: BASO % 0.3 % (0-2.0); EOS % 0.5 % (0-4.5); HEMATOCRIT 25.5 % (35.4-49); HEMOGLOBIN 8.4 GM/dL (11.7-16.9); LYMPH % 11.6 % (8-40); MCH 26.9 pg (25.7-33.7); MCHC 32.9 g/dl (32.0-35.9); MEAN CELL VOLUME 81.6 fl (80-96); MEAN PLT VOLUME 6.9 fl (7.5-11.1); MONO % 2.7 % (3.8-10.2); NEUT % 84.9 % (42.8-82.8); PLATELET COUNT 398 K/MM3 (134-434); RBC 3.12 M/mm3 (4.00-5.60); RDW 15.6 % (11.9-15.9); WHITE BLOOD COUNT 14.7 K/mm3 (4.0-10.0)
[2020-02-14 22:16] LABS: ALBUMIN 1.5 g/dl (3.4-5.0); CALCIUM 7.3 mg/dL (8.5-10.1)
[2020-02-14 22:17] LABS: BLOOD UREA NITROGEN 20.7 mg/dL (7-18)
[2020-02-14 22:20] LABS: CREATININE 0.7 mg/dL (0.55-1.3)
[2020-02-14 22:21] LABS: BILIRUBIN,TOTAL 0.2 mg/dL (0.2-1); TOT PROT 5.9 g/dl (6.4-8.2)
[2020-02-15] MEDS ORDERED: SODIUM CHLORIDE 100 ML IVPB ONE ×4 (02:38→19:59)
[2020-02-15] MEDS ORDERED: AMPICILLIN NA/SULBACTAM NA 1.5 GM VIAL ONE ×4 (02:38→19:59)
[2020-02-15] MEDS: AMPICILLIN NA/SULBACTAM NA 1.5 GM in SODIUM CHLORIDE 100 ML IVPB SCH ×4 (02:40→20:20)
[2020-02-15 07:53] LABS: BASO % 0.2 % (0-2.0); EOS % 0.8 % (0-4.5); HEMOGLOBIN 8.3 GM/dL (11.7-16.9); LYMPH % 14.3 % (8-40); MCH 27.3 pg (25.7-33.7); MCHC 33.4 g/dl (32.0-35.9); MEAN CELL VOLUME 81.7 fl (80-96); MEAN PLT VOLUME 7.1 fl (7.5-11.1); MONO % 3.4 % (3.8-10.2); NEUT % 81.3 % (42.8-82.8); PLATELET COUNT 369 K/MM3 (134-434); RBC 3.06 M/mm3 (4.00-5.60); RDW 15.7 % (11.9-15.9); WHITE BLOOD COUNT 9.5 K/mm3 (4.0-10.0)
[2020-02-15 08:12] LABS: ALBUMIN 1.5 g/dl (3.4-5.0); CALCIUM 7.3 mg/dL (8.5-10.1)
[2020-02-15 08:13] LABS: BLOOD UREA NITROGEN 15.4 mg/dL (7-18)
[2020-02-15 08:16] LABS: CREATININE 0.5 mg/dL (0.55-1.3)
[2020-02-15 08:17] LABS: BILIRUBIN,TOTAL 0.2 mg/dL (0.2-1); TOT PROT 5.8 g/dl (6.4-8.2)
[2020-02-15] MEDS: FINASTERIDE 5 MG TABLET (FP) PO SCH (09:14)
[2020-02-15] MEDS: metoPROLOL SUCCINATE 25 MG TAB.SR.24H (FP) PO SCH (09:14)
[2020-02-15] MEDS: ASPIRIN 81 MG CHEWABLE TABLETS PO SCH (09:14)
[2020-02-15] MEDS: TAMSULOSIN HCL 0.4 MG CAP PO SCH (09:14)
[2020-02-15] MEDS: SILVER SULFADIAZINE 1% TOP CREAM 50 GM JAR TP SCH (16:01)
[2020-02-15] MEDS: DEXTROSE 5%-NORMAL SALINE 1,000 ML IV SCH (20:19)
[2020-02-15] MEDS: ATORVASTATIN CA 80 MG TABLET (FP) PO SCH (21:08)
[2020-02-16] MEDS ORDERED: AMPICILLIN NA/SULBACTAM NA 1.5 GM VIAL ONE ×4 (02:11→20:38)
[2020-02-16] MEDS ORDERED: SODIUM CHLORIDE 100 ML IVPB ONE ×4 (02:12→20:39)
[2020-02-16] MEDS: AMPICILLIN NA/SULBACTAM NA 1.5 GM in SODIUM CHLORIDE 100 ML IVPB SCH ×4 (02:31→20:52)
[2020-02-16] MEDS: MULTIVITAMINS (DAILY MVI) TABLET (FP) PO SCH (09:11)
[2020-02-16] MEDS: SILVER SULFADIAZINE 1% TOP CREAM 50 GM JAR TP SCH (09:11)
[2020-02-16] MEDS: TAMSULOSIN HCL 0.4 MG CAP PO SCH (09:11)
[2020-02-16] MEDS: FINASTERIDE 5 MG TABLET (FP) PO SCH (09:11)
[2020-02-16] MEDS: ASPIRIN 81 MG CHEWABLE TABLETS PO SCH (09:11)
[2020-02-16] MEDS: AMINO ACIDS/PROTEIN HYDROLYS 30 ML LIQUID.PKT PO SCH (09:11)
[2020-02-16] MEDS: metoPROLOL SUCCINATE 25 MG TAB.SR.24H (FP) PO SCH (09:12)
[2020-02-16] MEDS: DEXTROSE 5%-NORMAL SALINE 1,000 ML IV SCH (17:30)
[2020-02-16] MEDS: ATORVASTATIN CA 80 MG TABLET (FP) PO SCH (21:56)
[2020-02-17] MEDS ORDERED: AMPICILLIN NA/SULBACTAM NA 1.5 GM VIAL ONE ×3 (02:03→21:22)
[2020-02-17] MEDS ORDERED: SODIUM CHLORIDE 100 ML IVPB ONE ×3 (02:03→21:22)
[2020-02-17] MEDS: AMPICILLIN NA/SULBACTAM NA 1.5 GM in SODIUM CHLORIDE 100 ML IVPB SCH ×4 (02:07→21:25)
[2020-02-17] MEDS ORDERED: PT OWN MED DRAWER 7, Y5N ONE (09:05)
[2020-02-17] MEDS: MULTIVITAMINS (DAILY MVI) TABLET (FP) PO SCH (09:15)
[2020-02-17] MEDS: ASPIRIN 81 MG CHEWABLE TABLETS PO SCH (09:15)
[2020-02-17] MEDS: TAMSULOSIN HCL 0.4 MG CAP PO SCH (09:15)
[2020-02-17] MEDS: AMINO ACIDS/PROTEIN HYDROLYS 30 ML LIQUID.PKT PO SCH (09:15)
[2020-02-17] MEDS: metoPROLOL SUCCINATE 25 MG TAB.SR.24H (FP) PO SCH (09:15)
[2020-02-17] MEDS: FINASTERIDE 5 MG TABLET (FP) PO SCH (09:15)
[2020-02-17] MEDS: DEXTROSE 5%-NORMAL SALINE 1,000 ML IV SCH (09:23)
[2020-02-17] MEDS: SILVER SULFADIAZINE 1% TOP CREAM 50 GM JAR TP SCH (09:24)
[2020-02-17] MEDS: ATORVASTATIN CA 80 MG TABLET (FP) PO SCH (21:25)
[2020-02-18] MEDS ORDERED: SODIUM CHLORIDE 100 ML IVPB ONE ×4 (02:58→22:22)
[2020-02-18] MEDS ORDERED: AMPICILLIN NA/SULBACTAM NA 1.5 GM VIAL ONE ×4 (02:58→22:22)
[2020-02-18] MEDS: AMPICILLIN NA/SULBACTAM NA 1.5 GM in SODIUM CHLORIDE 100 ML IVPB SCH ×4 (03:02→22:43)
[2020-02-18] MEDS: AMINO ACIDS/PROTEIN HYDROLYS 30 ML LIQUID.PKT PO SCH (10:33)
[2020-02-18] MEDS: ASPIRIN 81 MG CHEWABLE TABLETS PO SCH (10:33)
[2020-02-18] MEDS: metoPROLOL SUCCINATE 25 MG TAB.SR.24H (FP) PO SCH (10:34)
[2020-02-18] MEDS: FINASTERIDE 5 MG TABLET (FP) PO SCH (10:34)
[2020-02-18] MEDS: TAMSULOSIN HCL 0.4 MG CAP PO SCH (10:34)
[2020-02-18] MEDS: MULTIVITAMINS (DAILY MVI) TABLET (FP) PO SCH (10:34)
[2020-02-18] MEDS ORDERED: PT OWN MED DRAWER 7, Y5N ONE (10:39)
[2020-02-18] MEDS: SILVER SULFADIAZINE 1% TOP CREAM 50 GM JAR TP SCH (10:41)
[2020-02-18] MEDS: ATORVASTATIN CA 80 MG TABLET (FP) PO SCH (22:43)
[2020-02-19] MEDS ORDERED: AMPICILLIN NA/SULBACTAM NA 1.5 GM VIAL ONE (03:37)
[2020-02-19] MEDS ORDERED: SODIUM CHLORIDE 100 ML IVPB ONE (03:37)
[2020-02-19] MEDS: AMPICILLIN NA/SULBACTAM NA 1.5 GM in SODIUM CHLORIDE 100 ML IVPB SCH ×2 (03:51→09:55)
[2020-02-19] MEDS ORDERED: PT OWN MED DRAWER 7, Y5N ONE (08:53)
[2020-02-19] MEDS: AMINO ACIDS/PROTEIN HYDROLYS 30 ML LIQUID.PKT PO SCH (08:56)
[2020-02-19] MEDS: TAMSULOSIN HCL 0.4 MG CAP PO SCH (08:56)
[2020-02-19] MEDS: ASPIRIN 81 MG CHEWABLE TABLETS PO SCH (09:55)
[2020-02-19] MEDS: metoPROLOL SUCCINATE 25 MG TAB.SR.24H (FP) PO SCH (09:56)
[2020-02-19] MEDS: SILVER SULFADIAZINE 1% TOP CREAM 50 GM JAR TP SCH (09:56)
[2020-02-19] MEDS: FINASTERIDE 5 MG TABLET (FP) PO SCH (09:56)
[2020-02-19] MEDS: MULTIVITAMINS (DAILY MVI) TABLET (FP) PO SCH (09:56)
[2020-02-19 15:34] VITALS: BP 105/77; PULSE 74; TEMP 98
== END 2020-02-19 15:37 | DRG 57 ==
LOC: JER 14:05 → JERBED 17:36 → J4S 02-04 22:50
PROVIDERS: ATTEND Internal Medicine
DX: I69.90 Unspecified sequelae of unspecified cerebrovascular disease (principal); G45.9 Transient cerebral ischemic attack, unspecified; E87.1 Hypo-osmolality and hyponatremia; E78.5 Hyperlipidemia, unspecified; M10.9 Gout, unspecified; E11.9 Type 2 diabetes mellitus without complications; R29.810 Facial weakness; R33.9 Retention of urine, unspecified; D64.9 Anemia, unspecified; I25.119 Atherosclerotic heart disease of native coronary artery with unspecified angina pectoris; R26.81 Unsteadiness on feet; I11.0 Hypertensive heart disease with heart failure; I50.9 Heart failure, unspecified
CPT/HCPCS: 36415; 70450-TC; 70551-TC; 71045-TC-FY; 80048; 80053; 80061; 81003; 82550; 82962; 83090; 83605; 83721; 83880; 84484; 85025; 85610; 85730; 86850; 86900; 86901; 87040; 87086; 87186; 90670; 93005; 93010; 93306-TC; 93880-TC; 93970-TC; 97116-GP; 97161-GP; 99285-25; C9803; U0003

== ENCOUNTER 2020-04-22 10:09 | Inpatient (IN) | payer OTHER ==
[2020-04-22 10:27] VITALS: BMI 24.3
[2020-04-22 10:52] LABS: BASO % 0.3 % (0-2.0); EOS % 0.4 % (0-4.5); HEMATOCRIT 27.6 % (35.4-49); HEMOGLOBIN 9.1 GM/dL (11.7-16.9); LYMPH % 27.9 % (8-40); MCH 27.2 pg (25.7-33.7); MCHC 33.1 g/dl (32.0-35.9); MEAN CELL VOLUME 82.1 fl (80-96); MEAN PLT VOLUME 7.3 fl (7.5-11.1); MONO % 5.8 % (3.8-10.2); NEUT % 65.6 % (42.8-82.8); PLATELET COUNT 371 K/MM3 (134-434); RBC 3.36 M/mm3 (4.00-5.60); RDW 16.3 % (11.9-15.9); WHITE BLOOD COUNT 6.3 K/mm3 (4.0-10.0)
[2020-04-22 11:00] LABS: INR 1.12 (0.83-1.09); PROTHROMBIN TIME (PATIENT) 13.7 SEC (9.7-13.0)
[2020-04-22] MEDS ORDERED: SODIUM CHLORIDE 1,000 ML IV STA ×2 (11:14→19:00)
[2020-04-22 12:11] LABS: ANION GAP 5 MMOL/L (8-16); CHLORIDE 100 mmol/L (98-107); CO2 31 mmol/L (21-32); GLUCOSE,RANDOM 120 mg/dL (74-106); POTASSIUM 3.6 mmol/L (3.5-5.1); SODIUM 136 mmol/L (136-145)
[2020-04-22 12:13] LABS: ALBUMIN 2.3 g/dl (3.4-5.0); ALK PHOS 76 U/L (45-117); BILIRUBIN,TOTAL 0.2 mg/dL (0.2-1); BLOOD UREA NITROGEN 19.6 mg/dL (7-18); CALCIUM 8.3 mg/dL (8.5-10.1); CREATININE 0.8 mg/dL (0.55-1.3); SGOT/AST 7 U/L (15-37); SGPT/ALT 11 U/L (13-61); TOT PROT 6.6 g/dl (6.4-8.2)
[2020-04-22 12:44] LABS: EPI CELLS 1 /uL (0-25.1); HYALINE CASTS 2 /uL (0-3.1); PH,URINE 5.5 (5.0-8.0); URINE APPEARANCE CLOUDY; URINE BACTERIA >9,000 /uL (0-1359); URINE BILIRUBIN NEGATIVE (NEGATIVE); URINE COLOR YELLOW; URINE GLUCOSE (UA) NEGATIVE (NEGATIVE); URINE KETONE NEGATIVE (NEGATIVE); URINE LEUK ESTERASE 2+ (NEGATIVE); URINE NITRITE POSITIVE (NEGATIVE); URINE PROTEIN NEGATIVE (NEGATIVE); URINE RBC 121 /uL (0-23.9); URINE UROBILINOGEN 0.2 mg/dL (0.2-1.0); URINE WBC 227 /uL (0-25.8)
[2020-04-22] MEDS ORDERED: CEFTRIAXONE 1 GM in DEXTROSE 5%-WATER - 100 ML IVPB ONE (12:55)
[2020-04-22] MEDS ORDERED: CEFTRIAXONE 1 GM/50 ML BAG ONE (13:01)
[2020-04-22] MEDS: SODIUM CHLORIDE 1,000 ML IV SCH (13:40)
[2020-04-22] MEDS: ATORVASTATIN CA 80 MG TABLET (FP) PO SCH (21:13)
[2020-04-23] MEDS ORDERED: DEXTROSE 5%-WATER - 50 ML IVPB ONE (08:22)
[2020-04-23] MEDS ORDERED: cefTRIAXone SODIUM 1 GM VIAL ONE (08:22)
[2020-04-23] MEDS: CEFTRIAXONE 1 GM in DEXTROSE 5%-WATER - 50 ML IVPB SCH (10:54)
[2020-04-23] MEDS: TAMSULOSIN HCL 0.4 MG CAP PO SCH (10:54)
[2020-04-23] MEDS ORDERED: SODIUM CHLORIDE 500 ML IV ONE (14:45)
[2020-04-23] MEDS: SODIUM CHLORIDE 1,000 ML IV SCH ×2 (15:31→19:34)
[2020-04-23] MEDS: ATORVASTATIN CA 80 MG TABLET (FP) PO SCH (21:25)
[2020-04-24] MEDS: CEFTRIAXONE 1 GM in DEXTROSE 5%-WATER - 50 ML IVPB SCH (10:22)
[2020-04-24] MEDS: TAMSULOSIN HCL 0.4 MG CAP PO SCH (10:22)
[2020-04-24] MEDS ORDERED: DEXTROSE 5%-WATER - 50 ML IVPB ONE (10:27)
[2020-04-24] MEDS ORDERED: cefTRIAXone SODIUM 1 GM VIAL ONE (10:27)
[2020-04-24] MEDS: ATORVASTATIN CA 80 MG TABLET (FP) PO SCH (22:29)
[2020-04-24] MEDS: SODIUM CHLORIDE 1,000 ML IV SCH (22:29)
[2020-04-25] MEDS ORDERED: cefTRIAXone SODIUM 1 GM VIAL ONE (10:20)
[2020-04-25] MEDS ORDERED: DEXTROSE 5%-WATER - 50 ML IVPB ONE (10:21)
[2020-04-25] MEDS: CEFTRIAXONE 1 GM in DEXTROSE 5%-WATER - 50 ML IVPB SCH (10:23)
[2020-04-25] MEDS: TAMSULOSIN HCL 0.4 MG CAP PO SCH (10:23)
[2020-04-25] MEDS: SODIUM CHLORIDE 1,000 ML IV SCH (14:01)
[2020-04-25] MEDS: ATORVASTATIN CA 80 MG TABLET (FP) PO SCH (21:22)
[2020-04-26 07:59] LABS: BASO % 0.3 % (0-2.0); EOS % 0.6 % (0-4.5); HEMATOCRIT 30.3 % (35.4-49); HEMOGLOBIN 9.9 GM/dL (11.7-16.9); LYMPH % 20.1 % (8-40); MCH 27.2 pg (25.7-33.7); MCHC 32.6 g/dl (32.0-35.9); MEAN CELL VOLUME 83.5 fl (80-96); MONO % 4.4 % (3.8-10.2); NEUT % 74.6 % (42.8-82.8); PLATELET COUNT 344 K/MM3 (134-434); RBC 3.62 M/mm3 (4.00-5.60); RDW 17.1 % (11.9-15.9); WHITE BLOOD COUNT 5.8 K/mm3 (4.0-10.0)
[2020-04-26 08:05] LABS: POTASSIUM 3.5 mmol/L (3.5-5.1)
[2020-04-26 08:06] LABS: CALCIUM 7.7 mg/dL (8.5-10.1)
[2020-04-26 08:07] LABS: BLOOD UREA NITROGEN 8.6 mg/dL (7-18)
[2020-04-26 08:10] LABS: CREATININE 0.4 mg/dL (0.55-1.3)
[2020-04-26 08:11] LABS: BILIRUBIN,TOTAL 0.2 mg/dL (0.2-1)
[2020-04-26 08:12] LABS: TOT PROT 5.6 g/dl (6.4-8.2)
[2020-04-26 08:13] LABS: ALBUMIN 1.9 g/dl (3.4-5.0)
[2020-04-26] MEDS ORDERED: DEXTROSE 5%-WATER - 50 ML IVPB ONE (08:49)
[2020-04-26] MEDS ORDERED: cefTRIAXone SODIUM 1 GM VIAL ONE (08:49)
[2020-04-26] MEDS: TAMSULOSIN HCL 0.4 MG CAP PO SCH (09:04)
[2020-04-26] MEDS: CEFTRIAXONE 1 GM in DEXTROSE 5%-WATER - 50 ML IVPB SCH (09:04)
[2020-04-26] MEDS: SODIUM CHLORIDE 1,000 ML IV SCH (12:26)
[2020-04-26] MEDS: ATORVASTATIN CA 80 MG TABLET (FP) PO SCH (21:34)
[2020-04-27] MEDS ORDERED: DEXTROSE 5%-WATER - 50 ML IVPB ONE (09:14)
[2020-04-27] MEDS ORDERED: cefTRIAXone SODIUM 1 GM VIAL ONE (09:14)
[2020-04-27] MEDS: CEFTRIAXONE 1 GM in DEXTROSE 5%-WATER - 50 ML IVPB SCH (09:29)
[2020-04-27] MEDS: TAMSULOSIN HCL 0.4 MG CAP PO SCH (09:29)
[2020-04-27] MEDS: ENOXAPARIN NA (PORCINE) 40 MG/0.4 ML DISP.SYRIN SQ SCH (17:41)
[2020-04-27] MEDS: SODIUM CHLORIDE 1,000 ML IV SCH (17:41)
[2020-04-27] MEDS: ATORVASTATIN CA 80 MG TABLET (FP) PO SCH (21:03)
[2020-04-27 21:27] LABS: BASO % 2.1 % (0-2.0); HEMATOCRIT 28.6 % (35.4-49); HEMOGLOBIN 9.5 GM/dL (11.7-16.9); LYMPH % 37.7 % (8-40); MCH 27.4 pg (25.7-33.7); MCHC 33.2 g/dl (32.0-35.9); MEAN CELL VOLUME 82.5 fl (80-96); MEAN PLT VOLUME 7.4 fl (7.5-11.1); MONO % 5.1 % (3.8-10.2); NEUT % 53.1 % (42.8-82.8); PLATELET COUNT 355 K/MM3 (134-434); RBC 3.46 M/mm3 (4.00-5.60); RDW 17.3 % (11.9-15.9); WHITE BLOOD COUNT 4.2 K/mm3 (4.0-10.0)
[2020-04-27 21:30] LABS: POTASSIUM 3.9 mmol/L (3.5-5.1)
[2020-04-27 21:32] LABS: ALBUMIN 1.7 g/dl (3.4-5.0); BLOOD UREA NITROGEN 6.7 mg/dL (7-18)
[2020-04-27 21:35] LABS: CREATININE 0.5 mg/dL (0.55-1.3)
[2020-04-27 21:37] LABS: BILIRUBIN,TOTAL 0.2 mg/dL (0.2-1); TOT PROT 5.2 g/dl (6.4-8.2)
[2020-04-27 22:52] LABS: ANISOCYTOSIS 2+; MACROCYTOSIS 0; OVALOCYTE 1+; PLATELET ESTIMATE NORMAL
[2020-04-28] MEDS: SODIUM CHLORIDE 1,000 ML IV SCH ×2 (03:34→19:00)
[2020-04-28] MEDS ORDERED: cefTRIAXone SODIUM 1 GM VIAL ONE (09:33)
[2020-04-28] MEDS ORDERED: DEXTROSE 5%-WATER - 50 ML IVPB ONE (09:33)
[2020-04-28] MEDS: CEFTRIAXONE 1 GM in DEXTROSE 5%-WATER - 50 ML IVPB SCH (10:06)
[2020-04-28] MEDS: ENOXAPARIN NA (PORCINE) 40 MG/0.4 ML DISP.SYRIN SQ SCH (10:06)
[2020-04-28] MEDS: TAMSULOSIN HCL 0.4 MG CAP PO SCH (10:06)
[2020-04-28] MEDS: ATORVASTATIN CA 80 MG TABLET (FP) PO SCH (21:54)
[2020-04-29] MEDS: SODIUM CHLORIDE 1,000 ML IV SCH (07:00)
[2020-04-29] MEDS ORDERED: DEXTROSE 5%-WATER - 50 ML IVPB ONE (09:09)
[2020-04-29] MEDS ORDERED: cefTRIAXone SODIUM 1 GM VIAL ONE (09:09)
[2020-04-29] MEDS: ENOXAPARIN NA (PORCINE) 40 MG/0.4 ML DISP.SYRIN SQ SCH (10:18)
[2020-04-29] MEDS: TAMSULOSIN HCL 0.4 MG CAP PO SCH (10:18)
[2020-04-29] MEDS: CEFTRIAXONE 1 GM in DEXTROSE 5%-WATER - 50 ML IVPB SCH (10:18)
[2020-04-29 17:05] VITALS: BP 109/63; PULSE 51; TEMP 97.8
== END 2020-04-29 17:46 | disposition home or self-care (01) | DRG 689 ==
LOC: JER 10:09 → JERBED 13:12 → J4W 15:49
PROVIDERS: ADMIT Internal Medicine; ATTEND Internal Medicine
DX: N39.0 Urinary tract infection, site not specified (principal); G93.41 Metabolic encephalopathy; E87.1 Hypo-osmolality and hyponatremia; I50.30 Unspecified diastolic (congestive) heart failure; R00.1 Bradycardia, unspecified; I11.0 Hypertensive heart disease with heart failure; F03.90 Unspecified dementia, unspecified severity, without behavioral disturbance, psychotic disturbance, mood disturbance, and anxiety; E11.9 Type 2 diabetes mellitus without complications; E78.5 Hyperlipidemia, unspecified; B96.20 Unspecified Escherichia coli [E. coli] as the cause of diseases classified elsewhere; H53.9 Unspecified visual disturbance; I25.119 Atherosclerotic heart disease of native coronary artery with unspecified angina pectoris; R33.9 Retention of urine, unspecified; R41.82 Altered mental status, unspecified; Z86.73 Personal history of transient ischemic attack (TIA), and cerebral infarction without residual deficits
CPT/HCPCS: 36415; 70450-TC; 71045-TC-FY; 80053; 81003; 82550; 84439; 84443; 84484; 85025; 85610; 87040; 87086; 87186; 93005; 93010; 94761; 97116-GP; 97161-GP; 99285-25; C9803; U0003